=== PATIENT | female | born 1945 | race Caucasian/White ===

== ENCOUNTER 2016-09-17 09:25 | Inpatient (IN) | payer MEDICARE, BC ==
[~2016-09-17] VITALS: Ht 144.8 cm; Wt 66.8 kg
[~2016-09-17 09:25] MED LIST: CALCIUM CITRATE PO; ENALAPRIL20 MG PO; HYDROCHLORO25 MG/TAB PO; LIPITOR20 M1 PO; TRAMADOL HYDROC50 MG PO
--- NOTE | 2016-09-17 09:38 | NUR ---
PATIENT AMBULATED TO ROOM 14 WITH STEADY GAIT
[2016-09-17 10:25] LABS: HEMATOCRIT 40.5 % (37.0-47.0); HEMOGLOBIN 13.4 g/dl (12.0-16.0); IMMATURE GRANULOCYTES 0.3 % (0.0-1.0); MEAN CELL VOLUME 89.8 fL CALC (80.0-100.0); MEAN CORPUSCULAR HGB 29.7 pG CALC (26.0-32.0); MEAN CORPUSCULAR HGB CONC 33.1 g/L CALC (32.0-36.0); NEUT# 13.26 thou/uL (2.00-7.15); RED BLOOD COUNT 4.51 mill/uL (4.20-5.60); RED CELL DISTRI WIDTH 12.2 % (11.5-15.5)
[2016-09-17 10:37] LABS: ALBUMIN 4.5 g/dL (3.2-5.0); ALKALINE PHOSPHATASE 94 u/l (38-126); ANION GAP 16 (6-22 (CALC)); BILIRUBIN, TOTAL 0.7 mg/dL (0.0-1.4); BUN 24 mg/dL (8-23); BUN/CREATININE RATIO 25 (12-20 (CALC)); CALCIUM 9.5 mg/dL (8.4-10.2); CARBON DIOXIDE 27 mmol/l (22-30); CHLORIDE 98 mmol/l (95-108); GFR 55 ML/MIN (>=60 (CALC)); GFR FOR AFR.AMER. > 60 ML/MIN (>=60 (CALC)); GLUCOSE 146 mg/dL (82-115); LIPASE 107 u/l (23-300); POTASSIUM 3.3 mmol/l (3.5-5.1); SGOT/AST 25 u/l (9-36); SGPT/ALT 37 u/l (11-66); SODIUM 137 mmol/l (137-146); TOTAL PROTEIN 7.9 g/dL (6.3-8.2)
[2016-09-17 10:46] LABS: ACT PARTIAL THROMBO TIME 24.3 SECONDS (20.0-32.5); PROTHROMBIN TIME 10.6 SECONDS (9.0-12.5)
--- NOTE | 2016-09-17 11:09 | NUR ---
PT RETURNED FROM CT ADVISED OF WAIT TIME. MED PO POTASSIUM. ADVISED OF LAB RESULTS FOR HYPOKALEMIA
--- NOTE | 2016-09-17 12:20 | NUR ---
PT RESTING ON STRETCHER. NO APPARENT DISTRESS. IV SITE HEALTHY. FLUIDS VIA PUMP. VSS.
--- NOTE | 2016-09-17 13:36 | NUR ---
ATTEMPT TO CALL REPORT NURSE UNAVAILABLE AT THIS TIME.
--- NOTE | 2016-09-17 13:42 | NUR ---
REPORT PROVIDED TO NURSE MARCELLO, ON [facility].
--- NOTE | 2016-09-17 14:00 | NUR ---
PT TO [facility] RM 271 ON TELEMETRY VIA STRETCHER. IV SITE HEALTHY. NO APPARENT DISTRESS
[2016-09-17 14:13] VITALS: BP 151/72
--- NOTE | 2016-09-17 15:25 | NUR ---
PT ARRIVED FROM ER VIA STRETCHER ACCOMPANIED BY STAFF. IV SITE IS FREE FROM REDNESS OR EDEMA.
--- NOTE | 2016-09-17 16:00 | NUR ---
ASSESSMENT IS COMPLETED: BREATH SOUNDS ARE CLEAR, BILATERALLY, ABD IS SOFT WITH ACTIVE BS. IV SITE IS FREE FROM REDNESS OR EDEMA. PT WANTING TO AMBULATE. FAMILY CAME IN THE ROOM. CONTINUE TO OBSERVE AND MONITOR.
--- NOTE | 2016-09-17 16:31 | NUR ---
GAVE INFORMATION RE: DIVERTICULITIS, DIET AND STOOL WITH BLOOD. FOR PT EDUCATION.
--- NOTE | 2016-09-17 17:20 | NUR ---
MEDICATED WITH TORADOL 15MG IVP FOR C/O 10/10 CRAMPING ABD PAIN. FAMILY AT BEDSIDE. WILL CONTINUE TO MONITOR.
[2016-09-17 19:35] VITALS: BP 135/64
--- NOTE | 2016-09-17 20:34 | NUR ---
PT. RESTING IN BED WITH NO DISTRESS NOTED. DENIES NEEDS/PAIN. ASSESSMENT COMPLETED. IV SITE PATENT TO NOY CERVANTES PER ORDER. PT. ENCOURAGED TO CALL FOR ANY NEEDS. CALL LIGHT IS IN REACH. WILL CONTINUE TO MONITOR.
--- NOTE | 2016-09-17 23:01 | NUR ---
PT. HAD SMALL LOOSE BROWN/RED STOOL NOTED IN TOILET. WILL CONTINUE TO MONITOR. PT. REPORTS SHE HAS BEEN HAVING THEM. ENCOURAGED TO CALL FOR ANY NEEDS. CALL LIGHT IS IN REACH.
[2016-09-18] VITALS: BP 116/61
[2016-09-18 04:23] VITALS: BP 125/65
--- NOTE | 2016-09-18 04:25 | NUR ---
PT. RESTING IN BED WITH NO DISTRESS NOTED, DENIES NEEDS. PO FLUIDS OFFERED. VSS. WILL CONTINUE TO MONITOR. CALL LIGHT IS IN REACH.
[2016-09-18 04:48] LABS: HEMATOCRIT 34.1 % (37.0-47.0); HEMOGLOBIN 11.1 g/dl (12.0-16.0); IMMATURE GRANULOCYTES 0.4 % (0.0-1.0); MEAN CELL VOLUME 92.4 fL CALC (80.0-100.0); MEAN CORPUSCULAR HGB 30.1 pG CALC (26.0-32.0); MEAN CORPUSCULAR HGB CONC 32.6 g/L CALC (32.0-36.0); NEUT# 7.68 thou/uL (2.00-7.15); RED BLOOD COUNT 3.69 mill/uL (4.20-5.60); RED CELL DISTRI WIDTH 12.4 % (11.5-15.5)
[2016-09-18 05:08] LABS: ANION GAP 13 (6-22 (CALC)); BUN 19 mg/dL (8-23); BUN/CREATININE RATIO 21 (12-20 (CALC)); CALCIUM 8.6 mg/dL (8.4-10.2); CARBON DIOXIDE 25 mmol/l (22-30); CHLORIDE 103 mmol/l (95-108); CREATININE 0.9 mg/dL (0.5-1.0); GFR > 60 ML/MIN (>=60 (CALC)); GFR FOR AFR.AMER. > 60 ML/MIN (>=60 (CALC)); GLUCOSE 110 mg/dL (82-115); POTASSIUM 4.1 mmol/l (3.5-5.1); SODIUM 136 mmol/l (137-146)
--- NOTE | 2016-09-18 07:00 | NUR ---
RECEIVED BEDSIDE REPORT FROM ZULEMA BOSWELL. SITTING IN BEDSIDE CHAIR READING A BOOK. RESPS EVEN AND UNLABORED ON ROOM AIR, TELE MONITOR IN PLACE. C/O 02/28 ABD CRAMPING. WILL MEDICATE PER JUL. PLAN OF CARE DISCUSSED. SAFETY PRECAUTIONS REINFORCED. BED IN LOWEST POSITION WITH WHEELS LOCKED. CALL LIGHT WITHIN REACH. WILL CONTINUE TO MONITOR.
[2016-09-18 07:29] VITALS: BP 117/47
--- NOTE | 2016-09-18 07:30 | NUR ---
SITTING IN BEDSIDE CHAIR. C/O 10/ ABD CRAMPING, MEDICATED WITH TORADOL 15MG IVP FOR RELIEF. PT REPORTS CRAMPING AFTER AMBULATING. CALL LIGHT WITHIN REACH.
[2016-09-18 10:35] VITALS: BP 119/59
[2016-09-18] MEDS ORDERED: CIPROFLOXACN500 MG PO (11:10)
[2016-09-18] MEDS ORDERED: METRONIDAZOL500 MG PO (11:11)
[2016-09-18] MEDS ORDERED: ZOFRAN ODT4 MG PO (11:11)
--- NOTE | 2016-09-18 12:00 | NUR ---
SITTING IN BEDSIDE CHAIR. RESPS EVEN AND UNLABORED ON ROOM AIR, TELE MONITOR IN PLACE. DENIES PAIN OR DISCOMFORT AT THIS TIME. CALL LIGHT WITHIN REACH.
--- NOTE | 2016-09-18 13:10 | NUR ---
DR SCHULTZ IN TO SEE PT, NEW ORDERS RECEIVED.
--- NOTE | 2016-09-18 14:51 | NUR ---
Discharge instructions given. Patient verbalizes understanding of same. Discharged in stable condition via Wheelchair to Home with spouse. All belongings sent with pt.
== END 2016-09-18 14:52 | disposition home or self-care (01) | DRG 918 ==
LOC: ENPENDDIS → ED 09:25 → MS2 11:40 → ED-I 11:41 → ED 11:41 → MS2 09-18 14:52
PROVIDERS: Emergency Medicine; ADMIT Internal Medicine; ATTEND Internal Medicine
DX: T62.8X1A Toxic effect of other specified noxious substances eaten as food, accidental (unintentional), initial encounter (principal); I10 Essential (primary) hypertension; E78.5 Hyperlipidemia, unspecified

== ENCOUNTER → 2018-07-06 | Outpatient (REF) | payer MEDICARE, BC ==
[~2018-07-06] MED LIST changes: +CIPROFLOXACN500 MG PO; +METRONIDAZOL500 MG PO; +ZOFRAN ODT4 MG PO
== END | disposition home or self-care (01) ==
LOC: LAB 09:52
PROVIDERS: ATTEND Nurse Practitioner Family
DX: E11.9 Type 2 diabetes mellitus without complications (principal)

== ENCOUNTER 2021-03-03 08:49 | Emergency (ER) | payer MEDICARE ==
[~2021-03-03] VITALS: Ht 144.8 cm; Wt 82.0 kg
[2021-03-03] MEDS ORDERED: FLEXERIL5 M1 PO (09:42)
[2021-03-03 10:11] VITALS: BP 176/74
== END 2021-03-03 10:19 | disposition home or self-care (01) ==
LOC: ED 08:49
DX: M54.50 Low back pain, unspecified (principal); M79.605 Pain in left leg; I10 Essential (primary) hypertension; E11.9 Type 2 diabetes mellitus without complications; Z98.1 Arthrodesis status